=== PATIENT | male | born 1955 | race Native Hawaiian/Other Pacific Islander ===

== ENCOUNTER 2021-09-28 14:59 | Outpatient (CLI) | payer BC | END 2021-09-28 19:20 | disposition home or self-care (01) | LOC: RAD 14:59 | PROVIDERS: ATTEND Internal Medicine | DX: R05.3 Chronic cough (principal) ==

== ENCOUNTER 2023-03-01 12:11 | Outpatient (CLI) | payer BC | END 2023-03-01 19:38 | disposition home or self-care (01) | LOC: LABW 12:11 | PROVIDERS: ATTEND Internal Medicine | DX: R05.3 Chronic cough (principal) ==